=== PATIENT | male | born 1980 | race African-American/Black ===

== ENCOUNTER 2023-04-29 23:38 | Inpatient (IN) | payer OTHER ==
[2023-04-30] MEDS ORDERED: Acetaminophen 500 MG TAB ONE (01:17)
[2023-04-30] MEDS ORDERED: cefTRIAXone (ROCEPHIN) 1 GM VIAL ONE (01:18)
[2023-04-30 01:42] LABS: ALT (SGPT) 35 U/L (8-55); AST (SGOT) 30 U/L (5-34); Albumin 4.2 g/dL (3.5-5.0); Alkaline Phosphatase 103 U/L (40-110); Anion Gap 15 mmol/L (10-20); BUN (Urea Nitrogen) 12 mg/dL (8.9-20.6); Bilirubin, Total 1.1 mg/dL (0.2-1.2); Calc. Creatinine Clearance 0 mL/min (70-130); Calcium 9.2 mg/dL (7.8-10.44); Carbon Dioxide 24 mmol/L (22-29); Chloride 99 mmol/L (98-107); Estimated GFR 79; Globulin 3.8 g/dL (2.4-3.5); Glucose 100 mg/dL (70-105); Potassium 3.5 mmol/L (3.5-5.1); Sodium 134 mmol/L (136-145)
[2023-04-30 01:53] LABS: Hematocrit 42.6 % (38.8-50.0); Hemoglobin 14.4 g/dL (13.5-17.5); Mean Corpuscular HGB CONC 33.8 g/dL (32.0-36.0); Mean Corpuscular Hemoglobin 31.6 pg (27.0-33.0); Mean Corpuscular Volume 93.6 fl (81.2-95.1); Mean Platelet Volume 10.6 fl (7.4-10.4); Platelet Count 208 10x3/uL (150-450); RBC Distribution Width 12.1 % (11.5-14.5); Red Blood Cell (RBC) Count 4.55 10x6/uL (4.32-5.72); White Blood Cell (WBC) Count 21.5 10x3/uL (3.5-10.5)
[2023-04-30 02:37] LABS: Band 18 % (5-11); Lymphocytes 9 % (21-51); Monocytes 5 % (0-10)
[2023-04-30 02:38] LABS: Neutrophil 68 % (42-75)
[2023-04-30 02:39] LABS: Large Platelets SLIGHT (None Seen); Platelet Adequacy Comment Appears Adequate; RBC Morph Comment Within Normal Limits
[2023-04-30 02:40] LABS: MDiff Complete? YES
[2023-04-30 06:35] VITALS: BMI 42.7
[2023-04-30] MEDS ORDERED: Ondansetron PF 4 MG/2 ML Vial IVP PRN (08:18)
[2023-04-30] MEDS: Lisinopril 10 MG TAB PO SCH (09:34)
[2023-04-30] MEDS: Lactated Ringer's 1,000 ML IV SCH ×2 (09:34→17:06)
[2023-04-30] MEDS ORDERED: VANCOMYCIN 2 GRAM/400 ML BAG 2 GM in Premix Bag 1 BAG IVPB SCH (10:30)
[2023-04-30] MEDS: VANCOMYCIN 1.75 GM/350 ML BAG 1.75 GM in Premix Bag 1 BAG IVPB SCH (21:07)
[2023-05-01] MEDS: Acetaminophen 325 MG TAB PO PRN (00:16)
[2023-05-01 04:36] LABS: #Eosinphils 0.1 10x3/uL (0.0-0.5); #Monocytes 1.4 10x3/uL (0.0-1.1); #Neutrophils 9.5 10x3/uL (1.5-8.4); %Basophils 0.3 % (0.0-2.0); %Eosinophils 0.8 % (0.0-6.0); %Lymphocytes 19.1 % (18.0-47.0); %Monocytes 10.2 % (0.0-10.0); %Neutrophils 69.1 % (40.0-75.0); Hemoglobin 13.9 g/dL (13.5-17.5); Mean Corpuscular HGB CONC 33.9 g/dL (32.0-36.0); Mean Corpuscular Hemoglobin 31.2 pg (27.0-33.0); Mean Corpuscular Volume 92.1 fl (81.2-95.1); Mean Platelet Volume 10.8 fl (7.4-10.4); Platelet Count 202 10x3/uL (150-450); RBC Distribution Width 12.2 % (11.5-14.5); Red Blood Cell (RBC) Count 4.45 10x6/uL (4.32-5.72); White Blood Cell (WBC) Count 13.8 10x3/uL (3.5-10.5)
[2023-05-01 04:43] LABS: Anion Gap 15 mmol/L (10-20); BUN (Urea Nitrogen) 9 mg/dL (8.9-20.6); Calc. Creatinine Clearance 194 mL/min (70-130); Calcium 9.1 mg/dL (7.8-10.44); Carbon Dioxide 21 mmol/L (22-29); Chloride 103 mmol/L (98-107); Estimated GFR 102; Glucose 87 mg/dL (70-105); Potassium 3.5 mmol/L (3.5-5.1); Sodium 135 mmol/L (136-145)
[2023-05-01] MEDS: Lisinopril 10 MG TAB PO SCH (09:12)
[2023-05-01] MEDS: VANCOMYCIN 1.75 GM/350 ML BAG 1.75 GM in Premix Bag 1 BAG IVPB SCH ×2 (09:12→22:10)
[2023-05-01] MEDS: HYDROcodone/Acetaminophen 10/325 mg Tablet PO PRN (12:33)
[2023-05-01 22:37] LABS: Vancomycin, Trough 7.1 ug/mL
[2023-05-02 05:42] LABS: #Basophils 0.1 10x3/uL (0.0-0.2); #Eosinphils 0.4 10x3/uL (0.0-0.5); #Monocytes 1.6 10x3/uL (0.0-1.1); #Neutrophils 7.1 10x3/uL (1.5-8.4); %Basophils 0.4 % (0.0-2.0); %Eosinophils 3.4 % (0.0-6.0); %Lymphocytes 20.9 % (18.0-47.0); %Monocytes 13.9 % (0.0-10.0); %Neutrophils 61.1 % (40.0-75.0); Hemoglobin 13.4 g/dL (13.5-17.5); Mean Corpuscular HGB CONC 32.7 g/dL (32.0-36.0); Mean Corpuscular Hemoglobin 31.1 pg (27.0-33.0); Mean Corpuscular Volume 95.1 fl (81.2-95.1); Mean Platelet Volume 10.2 fl (7.4-10.4); Platelet Count 172 10x3/uL (150-450); RBC Distribution Width 12.4 % (11.5-14.5); Red Blood Cell (RBC) Count 4.31 10x6/uL (4.32-5.72); White Blood Cell (WBC) Count 11.6 10x3/uL (3.5-10.5)
[2023-05-02 05:52] LABS: Anion Gap 16 mmol/L (10-20); BUN (Urea Nitrogen) 8 mg/dL (8.9-20.6); Calc. Creatinine Clearance 209 mL/min (70-130); Calcium 8.9 mg/dL (7.8-10.44); Carbon Dioxide 21 mmol/L (22-29); Chloride 104 mmol/L (98-107); Estimated GFR 110; Glucose 83 mg/dL (70-105); Potassium 4.7 mmol/L (3.5-5.1); Sodium 136 mmol/L (136-145)
[2023-05-02] MEDS: Acetaminophen 325 MG TAB PO PRN (08:58)
[2023-05-02] MEDS: Losartan 25 MG TAB PO SCH (08:58)
[2023-05-02] MEDS: VANCOMYCIN 2 GRAM/400 ML BAG 2 GM in Premix Bag 1 BAG IVPB SCH ×2 (08:58→20:28)
[2023-05-02 18:06] LABS: SARS-CoV-2 NAA Rapid Test Not Detected (NotDetected)
[2023-05-02] MEDS: HYDROcodone/Acetaminophen 10/325 mg Tablet PO PRN (20:28)
[2023-05-03] MEDS: Acetaminophen 325 MG TAB PO PRN ×2 (05:57→20:42)
[2023-05-03 06:01] LABS: #Basophils 0.1 10x3/uL (0.0-0.2); #Eosinphils 0.6 10x3/uL (0.0-0.5); #Monocytes 1.3 10x3/uL (0.0-1.1); #Neutrophils 4.9 10x3/uL (1.5-8.4); %Basophils 0.7 % (0.0-2.0); %Eosinophils 6.1 % (0.0-6.0); %Lymphocytes 28.9 % (18.0-47.0); %Monocytes 13.1 % (0.0-10.0); %Neutrophils 50.7 % (40.0-75.0); Hematocrit 40.3 % (38.8-50.0); Hemoglobin 13.4 g/dL (13.5-17.5); Mean Corpuscular HGB CONC 33.3 g/dL (32.0-36.0); Mean Corpuscular Hemoglobin 31.5 pg (27.0-33.0); Mean Corpuscular Volume 94.6 fl (81.2-95.1); Mean Platelet Volume 10.1 fl (7.4-10.4); Platelet Count 202 10x3/uL (150-450); RBC Distribution Width 12.5 % (11.5-14.5); Red Blood Cell (RBC) Count 4.26 10x6/uL (4.32-5.72); White Blood Cell (WBC) Count 9.6 10x3/uL (3.5-10.5)
[2023-05-03 06:28] LABS: Anion Gap 17 mmol/L (10-20); BUN (Urea Nitrogen) 8 mg/dL (8.9-20.6); Calc. Creatinine Clearance 207 mL/min (70-130); Calcium 9.1 mg/dL (7.8-10.44); Carbon Dioxide 21 mmol/L (22-29); Chloride 106 mmol/L (98-107); Estimated GFR 110; Glucose 105 mg/dL (70-105); Magnesium 2.1 mg/dL (1.6-2.6); Potassium 4.7 mmol/L (3.5-5.1); Sodium 139 mmol/L (136-145)
[2023-05-03] MEDS: Losartan 25 MG TAB PO SCH (08:24)
[2023-05-03] MEDS: VANCOMYCIN 2 GRAM/400 ML BAG 2 GM in Premix Bag 1 BAG IVPB SCH ×2 (08:24→21:53)
[2023-05-03 21:13] LABS: Vancomycin, Trough 9.9 ug/mL
[2023-05-03] MEDS: VANCOMYCIN 1.25 GM/250 ML BAG 1.25 GM in Premix Bag 1 BAG IVPB SCH (21:53)
[2023-05-04 04:07] LABS: #Basophils 0.1 10x3/uL (0.0-0.2); #Eosinphils 0.6 10x3/uL (0.0-0.5); #Neutrophils 5.2 10x3/uL (1.5-8.4); %Basophils 0.7 % (0.0-2.0); %Eosinophils 6.5 % (0.0-6.0); %Lymphocytes 23.3 % (18.0-47.0); %Monocytes 11.1 % (0.0-10.0); %Neutrophils 57.7 % (40.0-75.0); Hematocrit 40.2 % (38.8-50.0); Hemoglobin 13.3 g/dL (13.5-17.5); Mean Corpuscular HGB CONC 33.1 g/dL (32.0-36.0); Mean Corpuscular Hemoglobin 31.3 pg (27.0-33.0); Mean Corpuscular Volume 94.6 fl (81.2-95.1); Mean Platelet Volume 10.3 fl (7.4-10.4); Platelet Count 245 10x3/uL (150-450); RBC Distribution Width 12.6 % (11.5-14.5); Red Blood Cell (RBC) Count 4.25 10x6/uL (4.32-5.72); White Blood Cell (WBC) Count 8.9 10x3/uL (3.5-10.5)
[2023-05-04 04:22] LABS: Anion Gap 16 mmol/L (10-20); BUN (Urea Nitrogen) 11 mg/dL (8.9-20.6); Calc. Creatinine Clearance 207 mL/min (70-130); Carbon Dioxide 22 mmol/L (22-29); Chloride 105 mmol/L (98-107); Estimated GFR 110; Glucose 65 mg/dL (70-105); Potassium 3.9 mmol/L (3.5-5.1); Sodium 139 mmol/L (136-145)
[2023-05-04] MEDS: VANCOMYCIN 1.25 GM/250 ML BAG 1.25 GM in Premix Bag 1 BAG IVPB SCH ×3 (05:11→21:32)
[2023-05-04] MEDS: Losartan 25 MG TAB PO SCH (08:56)
[2023-05-05] MEDS: VANCOMYCIN 1.25 GM/250 ML BAG 1.25 GM in Premix Bag 1 BAG IVPB SCH ×3 (04:47→21:29)
[2023-05-05 05:07] LABS: #Basophils 0.1 10x3/uL (0.0-0.2); #Eosinphils 0.6 10x3/uL (0.0-0.5); #Monocytes 0.8 10x3/uL (0.0-1.1); #Neutrophils 5.3 10x3/uL (1.5-8.4); %Basophils 0.8 % (0.0-2.0); %Eosinophils 6.6 % (0.0-6.0); %Monocytes 8.9 % (0.0-10.0); Hematocrit 37.8 % (38.8-50.0); Hemoglobin 12.6 g/dL (13.5-17.5); Mean Corpuscular HGB CONC 33.3 g/dL (32.0-36.0); Mean Corpuscular Hemoglobin 31.2 pg (27.0-33.0); Mean Corpuscular Volume 93.6 fl (81.2-95.1); Mean Platelet Volume 10.7 fl (7.4-10.4); Platelet Count 243 10x3/uL (150-450); RBC Distribution Width 12.6 % (11.5-14.5); Red Blood Cell (RBC) Count 4.04 10x6/uL (4.32-5.72); White Blood Cell (WBC) Count 9.4 10x3/uL (3.5-10.5)
[2023-05-05 05:11] LABS: Anion Gap 15 mmol/L (10-20); BUN (Urea Nitrogen) 10 mg/dL (8.9-20.6); Calc. Creatinine Clearance 222 mL/min (70-130); Calcium 9.1 mg/dL (7.8-10.44); Carbon Dioxide 20 mmol/L (22-29); Chloride 108 mmol/L (98-107); Estimated GFR 112; Glucose 92 mg/dL (70-105); Potassium 4.3 mmol/L (3.5-5.1); Sodium 139 mmol/L (136-145)
[2023-05-05] MEDS: Losartan 25 MG TAB PO SCH (09:53)
[2023-05-05] MEDS ORDERED: Bupivacaine 0.25% HCL 30 ML VIAL FS SCH (11:30)
[2023-05-05] MEDS ORDERED: Lidocaine 1% w/Epinephrine 1:100K 30 ML VIAL FS SCH (11:30)
[2023-05-05] MEDS ORDERED: Acetaminophen 500 MG TAB PO SCH (14:00)
[2023-05-05] MEDS: traMADol HCl 50 MG TAB PO PRN (15:24)
[2023-05-05] MEDS: Ibuprofen 600 MG TAB PO PRN (16:47)
[2023-05-05 19:27] LABS: Vancomycin, Trough 15.3 ug/mL
[2023-05-05] MEDS: Acetaminophen 500 MG TAB PO SCH (21:29)
[2023-05-06] MEDS: traMADol HCl 50 MG TAB PO PRN ×2 (01:02→09:59)
[2023-05-06] MEDS: VANCOMYCIN 1.25 GM/250 ML BAG 1.25 GM in Premix Bag 1 BAG IVPB SCH (05:11)
[2023-05-06 05:12] LABS: #Basophils 0.1 10x3/uL (0.0-0.2); #Eosinphils 0.6 10x3/uL (0.0-0.5); #Monocytes 0.7 10x3/uL (0.0-1.1); #Neutrophils 3.9 10x3/uL (1.5-8.4); %Basophils 1.1 % (0.0-2.0); %Lymphocytes 28.6 % (18.0-47.0); %Monocytes 8.9 % (0.0-10.0); %Neutrophils 52.1 % (40.0-75.0); Hematocrit 37.8 % (38.8-50.0); Hemoglobin 12.2 g/dL (13.5-17.5); Mean Corpuscular HGB CONC 32.3 g/dL (32.0-36.0); Mean Corpuscular Hemoglobin 31.2 pg (27.0-33.0); Mean Corpuscular Volume 96.7 fl (81.2-95.1); Mean Platelet Volume 10.6 fl (7.4-10.4); Platelet Count 257 10x3/uL (150-450); RBC Distribution Width 12.9 % (11.5-14.5); Red Blood Cell (RBC) Count 3.91 10x6/uL (4.32-5.72); White Blood Cell (WBC) Count 7.5 10x3/uL (3.5-10.5)
[2023-05-06] MEDS: Ibuprofen 600 MG TAB PO PRN (05:14)
[2023-05-06 05:29] LABS: Anion Gap 13 mmol/L (10-20); BUN (Urea Nitrogen) 13 mg/dL (8.9-20.6); Calc. Creatinine Clearance 211 mL/min (70-130); Calcium 8.6 mg/dL (7.8-10.44); Carbon Dioxide 24 mmol/L (22-29); Chloride 108 mmol/L (98-107); Estimated GFR 110; Glucose 91 mg/dL (70-105); Magnesium 2.1 mg/dL (1.6-2.6); Potassium 4.7 mmol/L (3.5-5.1); Sodium 140 mmol/L (136-145)
[2023-05-06] MEDS: Acetaminophen 500 MG TAB PO SCH (10:00)
[2023-05-06] MEDS: Losartan 25 MG TAB PO SCH (10:01)
[2023-05-06 12:44] VITALS: BP 134/81; TEMP 98.9
== END 2023-05-06 14:35 | disposition home or self-care (01) | DRG 603 ==
LOC: CSHERS 23:38 → CSHTELE 04-30 04:27
PROVIDERS: ADMIT Family Medicine; ATTEND Internal Medicine
PROC: 0J9P0ZZ Drainage of Left Lower Leg Subcutaneous Tissue and Fascia, Open Approach (ICD-10-PCS; principal; 2023-05-05)
DX: L02.416 Cutaneous abscess of left lower limb (principal); Z68.41 Body mass index [BMI] 40.0-44.9, adult; L03.116 Cellulitis of left lower limb; I10 Essential (primary) hypertension; E66.9 Obesity, unspecified; D72.829 Elevated white blood cell count, unspecified; R50.9 Fever, unspecified; Z20.822 Contact with and (suspected) exposure to COVID-19
CPT/HCPCS: 36415; 71045; 80048; 80053; 80202; 83036; 83605; 83735; 85025; 86140; 86850; 86900; 86901; 87040; 87070; 87205; 93005; 96374; 97139; J0696; J1650; J3370; J7120; S0020

== ENCOUNTER 2024-05-11 06:50 | Inpatient (IN) | payer OTHER ==
[2024-05-11] MEDS ORDERED: Ketorolac Tromethamine 30 MG (1 mL) VIAL ONE (07:57)
[2024-05-11 08:04] LABS: Hematocrit 39.2 % (38.8-50.0); Hemoglobin 13.8 g/dL (13.5-17.5); Mean Corpuscular HGB CONC 35.2 g/dL (32.0-36.0); Mean Corpuscular Hemoglobin 32.4 pg (27.0-33.0); Mean Platelet Volume 10.6 fL (7.4-10.4); Platelet Count 180 10x3/uL (150-450); RBC Distribution Width 12.7 % (11.5-14.5); Red Blood Cell (RBC) Count 4.26 10x6/uL (4.32-5.72); White Blood Cell (WBC) Count 20.8 10x3/uL (3.5-10.5)
[2024-05-11 08:05] LABS: MDiff Complete? YES
[2024-05-11 08:16] LABS: Anion Gap 13 mmol/L (10-20); BUN (Urea Nitrogen) 13 mg/dL (8.9-20.6); Calc. Creatinine Clearance 0 mL/min (70-130); Carbon Dioxide 22 mmol/L (22-29); Chloride 105 mmol/L (98-107); Estimated GFR 91; Glucose 96 mg/dL (70-105); Potassium 3.7 mmol/L (3.5-5.1); Sodium 136 mmol/L (136-145)
[2024-05-11 09:12] LABS: Band 3 % (5-11); Eosinophils 1 % (0-10); Lymphocytes 3 % (21-51); Monocytes 7 % (0-10); Neutrophil 84 % (42-75); Reactive Lymphocytes 2 % (0-10)
[2024-05-11 09:13] LABS: Platelet Adequacy Comment Appears Adequate; RBC Morph Comment Within Normal Limits
[2024-05-11] MEDS ORDERED: Acetaminophen 500 MG TAB ONE (10:26)
[2024-05-11] MEDS ORDERED: Calcium Carbonate 500 MG ChewTAB PO PRN (11:27)
[2024-05-11] MEDS ORDERED: Ondansetron PF 4 MG/2 ML Vial IVP PRN (11:27)
[2024-05-11] MEDS ORDERED: Senokot S 8.6-50 MG TAB PO PRN (11:27)
[2024-05-11] MEDS: Sodium Chloride 0.9% 1,000 ML IV SCH (14:18)
[2024-05-11 21:05] VITALS: BMI 44.2
[2024-05-11] MEDS: Vancomycin 1.5 GRAM/300 ML BAG 1.5 GM in Premix 1 BAG IVPB SCH (21:06)
[2024-05-11] MEDS ORDERED: Acetaminophen 325 MG TAB ONE (21:17)
[2024-05-11] MEDS: Acetaminophen 325 MG TAB PO PRN (21:20)
[2024-05-11 21:55] LABS: Bilirubin Neg (Negative); Blood, Urine Negative (Negative); Clarity Clear (Clear); Glucose, Urine (Dipstick) Normal (Negative); Ketone, Urine Negative (Negative); Leukocyte Negative (Negative); Nitrite Negative (Negative); Protein, Urine (Dipstick) Negative (Neg-Trace)
[2024-05-11 23:02] LABS: CAUTI Indications for Culture Fever or rigors; RBC/HPF 0-3 HPF (0-3); Squamous Epithelial 0-3 HPF (0-3); WBC/HPF 0-3 HPF (0-3)
[2024-05-11 23:03] LABS: Bacteria/HPF Rare-Few HPF (None Seen); Transitional Epithelial 0-3 HPF (None Seen); Urine Culture Reflex No No
[2024-05-12 04:52] LABS: #Basophils 0.04 10x3/uL (0.0-0.2); #Eosinphils 0.06 10x3/uL (0.0-0.5); #Monocytes 0.99 10x3/uL (0.0-1.1); #Neutrophils 10.78 10x3/uL (1.5-8.4); %Basophils 0.3 % (0.0-2.0); %Eosinophils 0.4 % (0.0-6.0); %Monocytes 7.3 % (0.0-10.0); %Neutrophils 79.6 % (40.0-75.0); Hematocrit 37.7 % (38.8-50.0); Hemoglobin 12.3 g/dL (13.5-17.5); Mean Corpuscular HGB CONC 32.6 g/dL (32.0-36.0); Mean Corpuscular Hemoglobin 31.1 pg (27.0-33.0); Mean Corpuscular Volume 95.2 fL (81.2-95.1); Mean Platelet Volume 10.3 fL (7.4-10.4); Platelet Count 163 10x3/uL (150-450); RBC Distribution Width 12.7 % (11.5-14.5); Red Blood Cell (RBC) Count 3.96 10x6/uL (4.32-5.72); White Blood Cell (WBC) Count 13.6 10x3/uL (3.5-10.5)
[2024-05-12 05:09] LABS: ALT (SGPT) 29 U/L (8-55); AST (SGOT) 26 U/L (5-34); Albumin 3.1 g/dL (3.5-5.0); Alkaline Phosphatase 78 U/L (40-110); Anion Gap 12 mmol/L (10-20); BUN (Urea Nitrogen) 8 mg/dL (8.9-20.6); Bilirubin, Total 0.7 mg/dL (0.2-1.2); CK (CPK) 280 U/L (30-200); Calc. Creatinine Clearance 187 mL/min (70-130); Calcium 8.5 mg/dL (7.8-10.44); Carbon Dioxide 22 mmol/L (22-29); Chloride 107 mmol/L (98-107); Estimated GFR 98; Globulin 3.2 g/dL (2.4-3.5); Glucose 88 mg/dL (70-105); Potassium 3.7 mmol/L (3.5-5.1); Protein, Total 6.3 g/dL (6.0-8.3); Sodium 137 mmol/L (136-145)
[2024-05-12 06:07] LABS: Vancomycin, Random 11.3 ug/mL (See Comment)
[2024-05-12] MEDS ORDERED: Acetaminophen 325 MG TAB ONE ×2 (08:11→08:15)
[2024-05-12] MEDS: VANCOMYCIN 1.75 GM/350 ML BAG 1.75 GM in Premix 1 BAG IVPB SCH (11:28)
[2024-05-12] MEDS: Enoxaparin 40 MG (0.4 mL) SYRINGE SC SCH (11:29)
[2024-05-12] MEDS: traMADol HCl 50 MG TAB PO PRN (11:31)
[2024-05-13 04:09] LABS: #Basophils 0.05 10x3/uL (0.0-0.2); #Eosinphils 0.41 10x3/uL (0.0-0.5); #Monocytes 0.89 10x3/uL (0.0-1.1); #Neutrophils 4.56 10x3/uL (1.5-8.4); %Basophils 0.6 % (0.0-2.0); %Lymphocytes 27.6 % (18.0-47.0); %Monocytes 10.8 % (0.0-10.0); %Neutrophils 55.6 % (40.0-75.0); Hematocrit 38.1 % (38.8-50.0); Hemoglobin 12.8 g/dL (13.5-17.5); Mean Corpuscular HGB CONC 33.6 g/dL (32.0-36.0); Mean Corpuscular Hemoglobin 31.9 pg (27.0-33.0); Mean Platelet Volume 10.3 fL (7.4-10.4); Platelet Count 181 10x3/uL (150-450); RBC Distribution Width 12.9 % (11.5-14.5); Red Blood Cell (RBC) Count 4.01 10x6/uL (4.32-5.72); White Blood Cell (WBC) Count 8.2 10x3/uL (3.5-10.5)
[2024-05-13 04:18] LABS: Anion Gap 13 mmol/L (10-20); BUN (Urea Nitrogen) 9 mg/dL (8.9-20.6); CK (CPK) 246 U/L (30-200); Calc. Creatinine Clearance 207 mL/min (70-130); Calcium 9.2 mg/dL (7.8-10.44); Carbon Dioxide 22 mmol/L (22-29); Chloride 106 mmol/L (98-107); Estimated GFR 109; Glucose 83 mg/dL (70-105); Potassium 3.7 mmol/L (3.5-5.1); Sodium 137 mmol/L (136-145)
[2024-05-13] MEDS: Clindamycin 150 MG CAP PO SCH (11:13)
[2024-05-14] MEDS: Amlodipine 10 MG TAB PO SCH (09:23)
[2024-05-14 09:34] VITALS: BP 134/83; TEMP 98.6
== END 2024-05-14 10:01 | disposition home or self-care (01) | DRG 603 ==
LOC: CSHERS 06:50 → CSHERHOLD 10:27 → CSHTELE 05-12 09:22 → OBSVTOIN 05-13 09:52
PROVIDERS: ADMIT Internal Medicine; ATTEND Family Medicine
DX: L03.116 Cellulitis of left lower limb (principal); Z68.41 Body mass index [BMI] 40.0-44.9, adult; E66.9 Obesity, unspecified; I10 Essential (primary) hypertension; Z79.899 Other long term (current) drug therapy; Z71.3 Dietary counseling and surveillance
CPT/HCPCS: 36415; 76999; 80048; 80053; 80202; 81001; 82550; 83605; 85025; 86140; 87040; 87081; 94760; 94762; 96372; 96374; 96375; 96376; G0378; J1650; J1885; J3370; J7030

== ENCOUNTER → 2024-08-18 | Emergency (ER) | payer OTHER ==
[~2024-08-18] MED LIST: Albuterol 2.5 MG (0.5 mL) NEB ONE; Dexamethasone 10 MG/ML VIAL ONE; Ipratropium/Albuterol 3 ML NEB ONE
== END ==
LOC: CSHERS 09:18
DX: J45.901 Unspecified asthma with (acute) exacerbation (principal); J06.9 Acute upper respiratory infection, unspecified; I10 Essential (primary) hypertension
CPT/HCPCS: 71046; 87428; 93005; 94640; 94760; J1100; J7611; J7620